=== PATIENT | female | born 1975 | race Caucasian/White ===

== ENCOUNTER 2022-10-30 06:30 | Day surgery (SDC) | payer BC ==
[~2022-10-30 06:30] MED LIST: Lactated Ringers 1,000 ML IV SCH; Lidocaine 1%/Sod Bicarbonate in NS 8.4% 1 ML Syringe IDERM PRN
[2022-10-30 07:15] LABS: ESTIMATED GFR 70 mL/min (>60)
[2022-10-30] MEDS ORDERED: Propofol 200 MG/20 ML SDV ONE (07:34)
[2022-10-30] MEDS ORDERED: Rocuronium 50 MG/5 ML Vial ONE (07:34)
[2022-10-30] MEDS ORDERED: Ondansetron 4 MG/2 ML SDV ONE (07:34)
[2022-10-30] MEDS ORDERED: ceFAZolin 2 GM Vial ONE (07:34)
[2022-10-30] MEDS ORDERED: Lidocaine 1% 10 ML MDV ONE (07:34)
[2022-10-30] MEDS ORDERED: Bupivacaine 0.5% 30 ML SDV ONE (07:34)
[2022-10-30] MEDS ORDERED: Lidocaine 1% 5 ML VIAL ONE (07:34)
[2022-10-30] MEDS ORDERED: Dexamethasone 4 MG/ML 5 ML MDV ONE (07:34)
[2022-10-30] MEDS ORDERED: Midazolam 1 MG/ML 2 ML SDV ONE (07:34)
[2022-10-30] MEDS ORDERED: Ketamine 500 mg/10 ML MDV ONE (07:35)
[2022-10-30] MEDS ORDERED: Bupivacaine 0.25%/EPINEPHrine 1:200,000 30 ML SDV ONE (07:37)
[2022-10-30] MEDS ORDERED: fentaNYL 100 MCG/2 ML SDV ONE ×2 (07:44→09:02)
[2022-10-30] MEDS ORDERED: HYDROmorphone 0.5 MG/0.5 ML Syringe ONE ×2 (08:09→08:43)
[2022-10-30] MEDS ORDERED: Lactated Ringers 1,000 ML ONE ×2 (08:11→09:57)
[2022-10-30] MEDS ORDERED: HYDROmorphone 0.5 MG/0.5 ML Syringe IVPUSH PRN (08:19)
[2022-10-30] MEDS ORDERED: fentaNYL 100 MCG/2 ML SDV IVPUSH PRN (08:19)
[2022-10-30] MEDS ORDERED: Ondansetron 4 MG/2 ML SDV IVPUSH PRN (08:19)
[2022-10-30] MEDS ORDERED: Sodium Chloride 0.9% 10 ML Syringe FLUSH SCH (09:00)
[2022-10-30] MEDS ORDERED: Neostigmine Methylsulfate 10 MG/10 ML MDV ONE (09:11)
[2022-10-30] MEDS ORDERED: Ketorolac 30 MG/ML SDV ONE (09:27)
[2022-10-30] MEDS ORDERED: Acetaminophen/oxyCODONE 325-5 MG Tab PO PRN (10:33)
== END 2022-10-30 16:15 | disposition home or self-care (01) ==
LOC: JD.SDS 06:30
PROVIDERS: ATTEND Obstetrics & Gynecology
DX: D25.0 Submucous leiomyoma of uterus (principal); D25.1 Intramural leiomyoma of uterus; D25.2 Subserosal leiomyoma of uterus; N80.203 Endometriosis of bilateral fallopian tubes, unspecified depth; E55.9 Vitamin D deficiency, unspecified; M79.7 Fibromyalgia; F32.A Depression, unspecified; D50.9 Iron deficiency anemia, unspecified; E53.8 Deficiency of other specified B group vitamins; F41.9 Anxiety disorder, unspecified; Q79.60 Ehlers-Danlos syndrome, unspecified; Z98.890 Other specified postprocedural states; Z79.899 Other long term (current) drug therapy; Z91.048 Other nonmedicinal substance allergy status; Z98.84 Bariatric surgery status
CPT/HCPCS: 36415; 58552; 80048; 85025; 86850; 86900; 86901; A9270; J0690; J1100; J1170; J1885; J2250; J2405; J2704; J2710; J3010; J3490; J7120; 00944